=== PATIENT | male | born 1960 | race Caucasian/White ===

== ENCOUNTER 2020-10-10 07:12 | Inpatient (IN) | payer OTHER ==
[2020-10-03 10:39] VITALS: BMI 26.9
[2020-10-10] MEDS ORDERED: TRANEXAMIC ACID 1000 MG/10 ML VIAL IVPUSH ONE (07:31)
[2020-10-10] MEDS ORDERED: CEFAZOLIN 2 GM in DEXTROSE 5%-WATER - 50 ML IVPB ONE (07:31)
[2020-10-10] MEDS ORDERED: CELECOXIB 200 MG CAPSULE PO ONE (07:31)
[2020-10-10] MEDS ORDERED: ceFAZolin SODIUM 1 GM VIAL ONE ×2 (08:32→09:31)
[2020-10-10] MEDS ORDERED: VANCOMYCIN 1,000 MG VIAL (RESTRICTED TO ID ONLY) ONE (08:33)
[2020-10-10] MEDS ORDERED: DEXAMETHASONE SOD PHOSPHATE 10 MG/1 ML VIAL ONE (08:45)
[2020-10-10] MEDS ORDERED: BUPIVACAINE HCL/PF 0.5% (5 MG/ML) 30 ML VIAL IJ ONE (08:45)
[2020-10-10] MEDS ORDERED: MIDAZOLAM HCL 2 MG/2 ML SINGLE DOSE VIAL ONE ×2 (08:45→10:08)
[2020-10-10] MEDS ORDERED: TRANEXAMIC ACID 1000 MG/10 ML VIAL ONE (09:31)
[2020-10-10] MEDS ORDERED: PROPOFOL 20 ML ONE ×2 (09:33→10:46)
[2020-10-10] MEDS ORDERED: PHENYLEPHRINE HCL 10 MG/1 ML SINGLE DOSE VIAL ONE ×2 (09:50)
[2020-10-10] MEDS ORDERED: ONDANSETRON 4 MG/2 ML VIAL IVPUSH PRN ×2 (09:51→11:33)
[2020-10-10] MEDS ORDERED: MAG HYDROX/AL HYDROX/SIMETH 30 ML UNIT-DOSE CUP PO PRN (09:51)
[2020-10-10] MEDS ORDERED: MAGNESIUM HYDROX 2400MG/30ML ORAL SUSPENSION 30 ML CUP PO PRN (09:51)
[2020-10-10] MEDS ORDERED: LACTATED RINGERS SOLUTION 1,000 ML IV SCH (10:00)
[2020-10-10] MEDS ORDERED: oxyCODONE HCL 5 MG TABLET PO PRN (11:33)
[2020-10-10] MEDS ORDERED: traMADol HCL 50 MG TABLET PO PRN (11:33)
[2020-10-10] MEDS: ACETAMINOPHEN 325 MG TABLET (FP) PO SCH ×2 (11:57→17:39)
[2020-10-10] MEDS: oxyCODONE HCL 5 MG TABLET PO PRN (15:32)
[2020-10-10] MEDS: CEFAZOLIN 2 GM/D5W 2 GM/50 ML ML IVPB SCH (17:39)
[2020-10-10] MEDS: SENNOSIDES/DOCUSATE COMBO (SENNA PLUS) TABLET (UD) PO SCH (21:04)
[2020-10-11] MEDS: ACETAMINOPHEN 325 MG TABLET (FP) PO SCH ×3 (00:04→12:34)
[2020-10-11] MEDS: CEFAZOLIN 2 GM/D5W 2 GM/50 ML ML IVPB SCH (02:13)
[2020-10-11] MEDS: oxyCODONE HCL 5 MG TABLET PO PRN ×2 (06:10→09:43)
[2020-10-11 06:42] VITALS: BP 138/77; PULSE 90; TEMP 98.5
[2020-10-11] MEDS ORDERED: ASPIRIN 325 MG TABLET PO SCH (08:00)
[2020-10-11 08:34] LABS: HEMOGLOBIN 13.6 GM/dl (11.7-16.9); MCH 28.8 pg (25.7-33.7); MCHC 33.2 g/dl (32.0-35.9); MEAN CELL VOLUME 86.7 fl (80-96); PLATELET COUNT 157 K/MM3 (134-434); RBC 4.73 M/mm3 (4.00-5.60); RDW 12.5 % (11.9-15.9); WHITE BLOOD COUNT 10.1 K/mm3 (4.0-10.8)
[2020-10-11] MEDS: MULTIVITAMINS (DAILY MVI) TABLET (FP) PO SCH (09:42)
[2020-10-11] MEDS: PANTOPRAZOLE 40 MG TABLET PO SCH (09:42)
[2020-10-11] MEDS: SENNOSIDES/DOCUSATE COMBO (SENNA PLUS) TABLET (UD) PO SCH (09:42)
== END 2020-10-11 13:35 | disposition home health service (06) | DRG 470 ==
LOC: FM/S 07:12
PROVIDERS: ADMIT Orthopaedic Surgery; ATTEND Orthopaedic Surgery
PROC: 8E0W0CZ Robotic Assisted Procedure of Trunk Region, Open Approach (ICD-10-PCS; 2020-10-10)
PROC: 0SR90JA Replacement of Right Hip Joint with Synthetic Substitute, Uncemented, Open Approach (ICD-10-PCS; principal; 2020-10-10 10:05)
DX: M16.11 Unilateral primary osteoarthritis, right hip (principal)
CPT/HCPCS: 36415; 73502-TC-RT-FY; 85027; 94760; 97010-GP; 97116-GP; 97162-GP; J1100